=== PATIENT | female | born 1955 | race Caucasian/White ===

== ENCOUNTER 2019-12-01 12:58 | Emergency (ER) | payer MEDICAID ==
[~2019-12-01] VITALS: Ht 162.6 cm; Wt 160.0 kg
[2019-12-01] MEDS ORDERED: IV NORMAL SALINE 1,000ML 1,000 ML IV SCH (13:34)
[2019-12-01] MEDS ORDERED: FAMOTIDINE 20 MG/2 ML VIAL ONE (13:42)
[2019-12-01] MEDS ORDERED: FAMOTIDINE 20 MG/2 ML VIAL IVP ONE (13:45)
[2019-12-01] MEDS ORDERED: ONDANSETRON PF 4 MG/2 ML VIAL. IVP ONE (13:45)
--- NOTE | 2019-12-01 13:49 | PHYS DOC ---
Past History Past Medical History: No Pertinent History Past Medical History Back pain, obesity Past Surgical History: Other Additional Past Surgical Histo: LEFT ROTATOR CUFF Alcohol Use: None General Adult EDM: Chief Complaint: ABDOMINAL PAIN HPI: HPI: Patient is a 64 year old female who presents for evaluation of upper abdominal pain. Symptoms been progressing for the past 2 to 3 weeks. She states that when she eats that she starts having increased pain. As a result she is had decreased recent food intake. Symptoms are getting worse. She also is complain ing of acute on chronic low back pain. She did have an episode of nausea and vomiting as well as dry heaves. There is no reported diarrhea, black bloody or tarry stools. She saw her family physician about 3 days ago and was diagnosed with a UTI. She is currently taking Bactrim. Patient is otherwise benign- appearing. Review of Systems: Review of Systems: Constitutional: Denies fever or chills Eyes: Denies change in visual acuity HENT: Denies nasal congestion or sore throat Respiratory: Denies cough or shortness of breath Cardiovascular: Denies chest pain or edema GI: upper abdominal pain with episode of nausea and vomiting, no bloody stools or diarrhea : Denies dysuria Musculoskeletal: low back pain no joint pain Integument: Denies rash Neurologic: Denies headache, focal weakness or sensory changes Endocrine: Denies polyuria or polydipsia Lymphatic: Denies swollen glands Psychiatric: Denies depression or anxiety Heart Score: Risk Factors: Risk Factors: DM, Current or recent (<one month) smoker, HTN, HLP, family history of CAD, obesity. Risk Scores: Score 0 - 3: 2.5% MACE over next 6 weeks - Discharge Home Score 4 - 6: 20.3% MACE over next 6 weeks - Admit for Clinical Observation Score 7 - 10: 72.7% MACE over next 6 weeks - Early Invasive Strategies Current Medications: Current Meds: Current Medications Medications (Trade) Dose Ordered Sig/Chang Start Time Stop Time Status Last Admin Dose Admin Famotidine (Pepcid Vial) 20 mg STK-MED ONCE 12/01/19 13:42 12/01/19 13:42 DC Ondansetron HCl (Zofran) 8 mg 1X ONCE 12/01/19 13:45 12/01/19 13:46 DC 12/01/19 13:45 8 MG Sodium Chloride 1,000 ml @ 100 mls/hr Q10H 12/01/19 13:34 12/01/19 23:33 12/01/19 13:44 100 MLS/HR Allergies: Allergies: Allergies Coded Allergies Type Severity Reaction Last Updated Verified amoxicillin Allergy Unknown Rash 12/01/19 Yes Physical Exam: PE: Constitutional: Well developed, well nourished, mild acute distress, non-toxic appearance. [] HENT: Normocephalic, atraumatic, bilateral external ears normal, oropharynx moist, no oral exudates, nose normal. [] Eyes: PERRL, EOMI, conjunctiva normal, no discharge. [] Neck: Normal range of motion, no tenderness, supple. [] Cardiovascular:Heart rate regular rhythm, no murmur [] Lungs & Thorax: Bilateral breath sounds clear to auscultation [] Abdomen: Bowel sounds diminished, no distention, soft, tenderness minimal epigastric area, no masses. [] Skin: Warm, dry, no erythema, no rash. [] Back: No tenderness. [] Extremities: No tenderness, no cyanosis, no clubbing, ROM intact, no edema. [] Neurologic: Alert and oriented X 3, normal motor function, normal sensory function, no focal deficits noted. [] Psychologic: Affect normal, judgement normal, mood normal. [] Current Patient Data: Vital Signs: Vital Signs Date Time Temp Pulse Resp B/P (MAP) Pulse Ox O2 Delivery O2 Flow Rate FiO2 12/01/19 13:28 98.3 96 18 142/100 (114) 92 Room Air EKG: EKG: EKG showed normal sinus rhythm, rate 85, leftward axis, inverted T wave lead III, not STEMI, read at 1345 [] Radiology/Procedures: Radiology/Procedures: [address] [address] IMAGING REPORT Signed PATIENT: RAYMOND BASILIO ACCOUNT: [id number] : 1955 LOCATION: ER AGE: 64 SEX: F EXAM STATUS: REG ER ORD. PHYSICIAN: RAUL VINSON DO REASON: upper abd pain PROCEDURE: ACUTE ABDOMEN SERIES Examination: ACUTE ABDOMEN SERIES History: Reason: upper abd pain / Spl. Instructions: / History: Comparison/Correlation: None Findings: Frontal view of the chest was obtained. Supine and upright views the abdomen were provided. Heart size is normal. No pneumothorax. Pulmonary vasculature normal limits. Bony structures are unremarkable. The lateral right upper lung field, there is a 0.6 cm well-defined nodule. No pleural effusion. No infiltrate. Supine and upright views of the abdomen were obtained. Bowel gas pattern is normal. Bony structures are unremarkable. No suspicious abdominal calcifications. Right upper quadrant clips which densities which may represent surgical clips noted. Impression: No focal infiltrate. Lateral right upper lung nodule which may represent a calcified granuloma. Correlate with prior exams if available. Interval follow-up in 6 months alternatively be performed if there are no prior exams. No bowel obstruction. Electronically signed by: Vin Umaña MD (12/01/2019 2:27 PM) [id number] DICTATED AND SIGNED BY: VIN UMAÑA MD DATE: 12/01/19 1427 CC: GRAHAM LEPE MD; RAUL VINSON DO ~ [] Course & Med Decision Making: Course & Med Decision Making Pertinent Labs and Imaging studies reviewed. (See chart for details) [] Dragon Disclaimer: Dragon Disclaimer: This electronic medical record was generated, in whole or in part, using a voice recognition dictation system. 1544 stable, feeling somewhat better at this time. Patient states has been pas sing some blood vaginally for several days. She is already being treated for urinary tract infection is currently on Bactrim. That infection appears to be controlled. Rest of blood work is unremarkable. Differential diagnosis include pancreatitis versus cardiac versus obstruction versus pneumonia versus other. Patient does not need to be admitted to the hospital. She likely has gastritis and may need outpatient endoscopy should her symptoms worsen or persist. Patient has no reported black, bloody or tarry stools. Prescription for Pepcid and Zofran given. Patient is been taking Pepto-Bismol with minimal improvement of symptoms at home Departure Departure: Impression: Primary Impression: Upper abdominal pain Additional Impression: Gastritis Qualified Codes: K29.00 - Acute gastritis without bleeding Disposition: HOME/RESIDENCE PRIOR TO ADM Condition: STABLE Referrals: GRAHAM LEPE MD (PCP) Patient Instructions: Abdominal Pain (Nonspecific), Gastritis, Adult Additional Instructions: [place] diet, no spicy foods, take Pepcid and Zofran as directed, call and see your doctor right in follow-up. Should your symptoms persist or worsen you may need endoscopy. Scripts Famotidine (PEPCID) 20 Mg Tablet 1 TAB PO BID for gastritis, #20 TAB 0 Refills Prov: RAUL VINSON DO 12/01/19 Ondansetron Hcl (ZOFRAN) 4 Mg Tablet 1 TAB PO PRN Q6HRS PRN for NAUSEA, #10 TAB Prov: RAUL VINSON DO 12/01/19 Justification of Admission: Justification of Admission: Justification of Admission Dx: N/A RAUL VINSON DO Dec 01, 2019 13:49
--- NOTE | 2019-12-01 14:06 | EKG ---
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
[2019-12-01 14:08] LABS: BASO # 0.1 x10^3/uL (0.0-0.2); BASO % 1 % (0-3); EOS # 0.3 x10^3/uL (0.0-0.7); EOS % 4 % (0-3); HEMATOCRIT 48.8 % (36.0-47.0); HEMOGLOBIN 16.3 g/dL (12.0-15.5); LYMPH # 2.6 x10^3/uL (1.0-4.8); LYMPH % 28 % (24-48); MEAN CORPUSCULAR HEMOGLOBIN 31 pg (25-35); MEAN CORPUSCULAR HGB CONC 33 g/dL (31-37); MEAN CORPUSCULAR VOLUME 92 fL (79-100); MONO # 0.8 x10^3/uL (0.0-1.1); MONO % 9 % (0-9); NEUT # 5.6 x10^3uL (1.8-7.7); NEUT % 59 % (31-73); PLATELET COUNT 294 x10^3/uL (140-400); RED BLOOD COUNT 5.31 x10^6/uL (3.50-5.40); RED CELL DISTRIBUTION WIDTH 14.2 % (11.5-14.5); WHITE BLOOD COUNT 9.5 x10^3/uL (4.0-11.0)
[2019-12-01 14:26] LABS: CALCIUM 8.5 mg/dL (8.5-10.1); CREATININE 1.3 mg/dL (0.6-1.0); GFR 41.5; POTASSIUM 4.7 mmol/L (3.5-5.1)
--- NOTE | 2019-12-01 14:30 | RAD ---
Examination: ACUTE ABDOMEN SERIES History: Reason: upper abd pain / Spl. Instructions: / History: Comparison/Correlation: None Findings: Frontal view of the chest was obtained. Supine and upright views the abdomen were provided. Heart size is normal. No pneumothorax. Pulmonary vasculature normal limits. Bony structures are unremarkable. The lateral right upper lung field, there is a 0.6 cm well-defined nodule. No pleural effusion. No infiltrate. Supine and upright views of the abdomen were obtained. Bowel gas pattern is normal. Bony structures are unremarkable. No suspicious abdominal calcifications. Right upper quadrant clips which densities which may represent surgical clips noted. Impression: No focal infiltrate. Lateral right upper lung nodule which may represent a calcified granuloma. Correlate with prior exams if available. Interval follow-up in 6 months alternatively be performed if there are no prior exams. No bowel obstruction. Electronically signed by: Vin Boles MD (12/01/2019 2:27 PM) [id number]
[2019-12-01 14:31] LABS: ALBUMIN 2.8 g/dL (3.4-5.0); ALBUMIN/GLOBULIN RATIO 0.6 (1.0-1.7); TOTAL BILIRUBIN 0.3 mg/dL (0.2-1.0); TOTAL PROTEIN 7.4 g/dL (6.4-8.2)
[2019-12-01] MEDS ORDERED: DICYCLOMINE 20 MG/2 ML VIAL. IM ONE (14:45)
[2019-12-01 15:38] LABS: BACTERIA,URINE 0 /HPF (0-FEW); BILIRUBIN,URINE NEG (NEG); CLARITY,URINE HAZY; COLOR,URINE AMBER; GLUCOSE,URINE 100 mg/dL (NEG); NITRITE,URINE POS (NEG); RBC,URINE 20-40 /HPF (0-2)
[2019-12-01 15:39] LABS: HYALINE CASTS, URINE OCC /HPF; SQUAMOUS EPITHELIAL CELL,UR MANY /LPF
[2019-12-01] MEDS ORDERED: FAMO-63 PO (15:48)
[2019-12-01] MEDS ORDERED: ONDA4TAB7 PO (15:48)
[2019-12-01 15:57] VITALS: BP 119/82
== END 2019-12-01 15:58 | disposition home or self-care (01) ==
LOC: ER 12:58
DX: K29.00 Acute gastritis without bleeding (principal); R10.10 Upper abdominal pain, unspecified; R11.2 Nausea with vomiting, unspecified; M54.5 Low back pain; G89.29 Other chronic pain; E66.9 Obesity, unspecified; Z68.44 Body mass index [BMI] 60.0-69.9, adult; Z88.1 Allergy status to other antibiotic agents
CPT/HCPCS: 36415; 74022; 80053; 81001; 83690; 84484; 85025; 93005; 96361; 96372; 96374; 96375; 99285; J0500; J2405; J3490; J7030

== ENCOUNTER 2019-12-24 17:11 | Inpatient (IN) | payer MEDICAID ==
[~2019-12-24] VITALS: Ht 162.6 cm; Wt 155.3 kg
[~2019-12-24 17:11] MED LIST: FAMO-63 PO; ONDA4TAB7 PO
--- NOTE | 2019-12-24 17:40 | PHYS DOC ---
Past History Additional Past Medical Histor: Obesity, chronic back pain (ROSA KRUEGER DO) Past Surgical History: Other Additional Past Surgical Histo: LEFT ROTATOR CUFF (ROSA KRUEGER DO) Alcohol Use: None (ROSA KRUEGER DO) Adult General Chief Complaint Chief Complaint: OTHER COMPLAINTS HPI HPI Patient is a 64-year-old female who presents via EMS for generalized weakness. Patient lives alone with her cat and states "I cannot do anything for myself". Patient cites eating [employer] in late October and ever since then, has been weak. Patient had a fall this morning, ground-level, onto the ground when she was trying to squat to use the commode. Denies hitting her head, neck, no LOC. Patient was on ground and due to habitus, was unable to get up. Patient's sister was alerted about fall and states that patient declined going via EMS for evaluation. Patient was ultimately found by sister still on the ground 9 hours from fall at 5 AM until she was found at 2 PM by daughter. Ultimately, daughter was concerned given patient's state that she called EMS for transport to [facility] for evaluation. On arrival to our ER, patient reports chronic back pain and inability to care for self. Denies any other concerning symptoms such as fever, recent URI-like illness, chest pain, shortness of breath, abdominal pa in, changes with bladder or bowel function, edema, recent concerning ingestions or exposures. Patient is obese and has chronic lower back pain due to this for which she is treated with narcotics in an outpatient setting, otherwise she denies any other significant medical comorbidities. Her PCP is Dr. Lepe who has done well providing care for her in the outpatient setting. She is pending CT abdomen pelvis with contrast and pelvic ultrasound that is scheduled for December 30. Patient is wanting relocation to alf or other type of assisted living facility, she is also wanting a wheelchair at this time (ROSA KRUEGER DO) Review of Systems Review of Systems Fourteen body systems of review of systems have been reviewed. See HPI for pertinent positives and negative responses, other yoon all other systems are negative, non-pertinent or non-contributory (ROSA KRUEGER DO) Allergies Allergies Allergies Coded Allergies Type Severity Reaction Last Updated Verified amoxicillin Allergy Unknown Rash 12/01/19 Yes (ROSA KRUEGER DO) Physical Exam Physical Exam Constitutional: Obese, well nourished, no acute distress, non-toxic appearance, unkept appearing. [] HENT: Normocephalic, atraumatic, bilateral external ears normal, oropharynx moist, no oral exudates, nose normal. [] Eyes: PERRLA, EOMI, conjunctiva normal, no discharge. [] Neck: Normal range of motion, no tenderness, supple, no stridor. [] Cardiovascular:Heart rate tachycardic, regular rhythm, no murmur rubs or gallops [] Lungs & Thorax: Bilateral breath sounds clear to auscultation [] Abdomen: Bowel sounds normal, soft, no tenderness, no masses, no pulsatile masses. No suprapubic tenderness to palpation [] Skin: Warm, dry, no erythema, no rash. [] Back: Bilateral paraspinal muscle tenderness in thoracic and lumbar areas, no palpable step-offs or midline tenderness of C/T/L spines, no CVA tenderness. [] Extremities: No tenderness, no cyanosis, no clubbing, ROM intact, no edema. [] Neurologic: Alert and oriented X 3, normal motor function, normal sensory function, no focal deficits noted. [] Psychologic: Affect normal, judgement normal, mood normal. [] (ROSA KRUEGER DO) EKG EKG EKG ordered and interpreted by myself at 1750 hrs. as sinus tachycardia at 109 bpm, unremarkable intervals, no axis deviation, findings consistent with Q waves in leads III and aVF concerning for potentially old inferior infarct, no ischemic findings, no STEMI (ROSA KRUEGER DO) Radiology/Procedures Radiology/Procedures [] (ROSA KRUEGER DO) Radiology/Procedures [address] [address] IMAGING REPORT Signed PATIENT: RAYMOND BASILIO ACCOUNT: [id number] : 1955 LOCATION: ER AGE: 64 SEX: F EXAM STATUS: REG ER ORD. PHYSICIAN: ROSA KRUEGER DO REASON: FALL, PAIN PROCEDURE: CHEST AP ONLY Single view chest and single view pelvis dated 12/24/2019. Comparison made to 12/01/2019 CLINICAL INDICATION: Pain after fall. FINDINGS chest: Single upright view of the chest shows normal heart and mediastinal contours. There is a nodular density at the left measures up to 2 cm, similar to prior study given differences in technique.. Mildly prominent perihilar linear markings some linear scar or atelectasis at the right base. No pleural effusion or consolidation. No pneumothorax. IMPRESSION chest: 1. No acute radiographic abnormality. 2. Nodular density at the left mid zone is indeterminate but probably not significantly changed from the prior exam. Neoplasm is not excluded. If indicated, CT to better evaluate. Findings pelvis: 3 AP images submitted. Bony alignment is anatomic. No displaced fracture. Pelvic ring is intact. Mild hypertrophic change of the bilateral hip joint with spondylotic change of the lower lumbar spine. IMPRESSION pelvis: No evidence of displaced fracture. If there is persistent clinical concern for occult fracture or insufficiency fracture, MRI could better evaluate Electronically signed by: Torsten Alicea MD (12/24/2019 6:31 PM) [facility] DICTATED AND SIGNED BY: TORSTEN ALICEA MD DATE: 12/24/19 183 CC: GRAHAM LEPE MD; ROSA KRUEGER DO ~ [address] [address] IMAGING REPORT Signed PATIENT: RAYMOND BASILIO ACCOUNT: [id number] : 1955 LOCATION: ER AGE: 64 SEX: F EXAM STATUS: REG ER ORD. PHYSICIAN: ROSA KRUEGER DO REASON: FALL - MOSTLY LEFT HIP PAIN PROCEDURE: PELVIS Single view chest and single view pelvis dated 12/24/2019. Comparison made to 12/01/2019 CLINICAL INDICATION: Pain after fall. FINDINGS chest: Single upright view of the chest shows normal heart and mediastinal contours. There is a nodular density at the left measures up to 2 cm, similar to prior study given differences in technique.. Mildly prominent perihilar linear markings some linear scar or atelectasis at the right base. No pleural effusion or consolidation. No pneumothorax. IMPRESSION chest: 1. No acute radiographic abnormality. 2. Nodular density at the left mid zone is indeterminate but probably not significantly changed from the prior exam. Neoplasm is not excluded. If indicated, CT to better evaluate. Findings pelvis: 3 AP images submitted. Bony alignment is anatomic. No displaced fracture. Pelvic ring is intact. Mild hypertrophic change of the bilateral hip joint with spondylotic change of the lower lumbar spine. IMPRESSION pelvis: No evidence of displaced fracture. If there is persistent clinical concern for occult fracture or insufficiency fracture, MRI could better evaluate Electronically signed by: Torsten Alicea MD (12/24/2019 6:31 PM) [facility] DICTATED AND SIGNED BY: TORSTEN ALICEA MD DATE: 12/24/191830 CC: GRAHAM LEPE MD; ROSA KRUEGER DO ~ (HENNA LANE MD) Course & Med Decision Making Course & Med Decision Making Patient seen and examined by myself on immediate ED arrival via ems Vital signs grossly unremarkable, sinus tachycardia, saturating greater than 90% on room air and soft blood pressure Comprehensive history and physical exam obtained, called daughter who provided additional history as patient was grossly asymptomatic with an unremarkable exam and did not provide much meaningful information Pertinent laboratory and imaging findings ordered and reviewed Patient's PCP, Dr. Lepe, was contacted and case discussed. He was agreeable that if anything medically indicative required admission that he would accept the admission; otherwise, he was amenable to discharge home via EMS transport and would see patient within 7 days to assist with patient care needs such as wheelchair and organizing patient to relocate to a home health facility versus other At this time of patient care, my shift has ended. Detailed report given to overnight physician. Discussed HPI, physical exam findings, and fact that laboratory and imaging studies ordered have not pended yet Please defer to their documentation for further medical management care (ROSA KRUEGER DO) Course & Med Decision Making Discussed presentation test and treatment plan with Dr. Lepe p Admit to Tele for further eval. and tx. Impression. 1. History of fall unable to get up more than 6 hours 2. Weakness 3. Morbid obesity 4. Obesity hypoventilation syndrome 5. Leukocytosis 12.1 6. Respiratory failure hypoxia 7. Elevated AST ALT and alk phos 8. Elevated CK 270 9. Malnutrition albumin 1.9 10. [id number] 11. Hyperkalemia critical 6.0 12. Elevated BUN and creatinine 44/2.6 13. Viral syndrome 14. Hyponatremia 126 Discussed presentation, testing and tx. plan with Dr. Lepe.. Admit for further eval. Plan on Social Service consult. (HENNA LANE MD) Dragon Disclaimer Dragon Disclaimer This electronic medical record was generated, in whole or in part, using a voice recognition dictation system. (ROSA KRUEGER DO) Departure Departure: Disposition: HOME/RESIDENCE PRIOR TO ADM Condition: STABLE Referrals: GRAHAM LEPE MD (PCP) Justification of Admission: Justification of Admission: Justification of Admission Dx: N/A (ROSA KRUEGER DO) Justification of Admission Dx: Yes Respiratory Failure: Severe Vent Deficit (HENNA LANE MD) Dragon Disclaimer This chart was dictated in whole or in part using Voice Recognition software in a busy, high-work load, and often noisy Emergency Department environment. It may contain unintended and wholly unrecognized errors or omissions. (HENNA LANE MD) ROSA KRUEGER DO Dec 24, 2019 17:[address] MD Dec 24, 2019 19:37
[2019-12-24 17:49] LABS: BASO # 0.1 x10^3/uL (0.0-0.2); BASO % 1 % (0-3); EOS % 0 % (0-3); HEMATOCRIT 47.3 % (36.0-47.0); HEMOGLOBIN 15.7 g/dL (12.0-15.5); LYMPH # 1.5 x10^3/uL (1.0-4.8); LYMPH % 12 % (24-48); MEAN CORPUSCULAR HEMOGLOBIN 30 pg (25-35); MEAN CORPUSCULAR HGB CONC 33 g/dL (31-37); MEAN CORPUSCULAR VOLUME 90 fL (79-100); MONO # 0.9 x10^3/uL (0.0-1.1); MONO % 8 % (0-9); NEUT # 9.6 x10^3uL (1.8-7.7); NEUT % 79 % (31-73); PLATELET COUNT 117 x10^3/uL (140-400); RED BLOOD COUNT 5.23 x10^6/uL (3.50-5.40); RED CELL DISTRIBUTION WIDTH 14.6 % (11.5-14.5); WHITE BLOOD COUNT 12.1 x10^3/uL (4.0-11.0)
--- NOTE | 2019-12-24 17:51 | EKG ---
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
[2019-12-24] MEDS ORDERED: IV NORMAL SALINE 1,000ML 1,000 ML IV ONE ×2 (18:00→18:50)
[2019-12-24 18:11] LABS: CALCIUM 10.5 mg/dL (8.5-10.1); CREATININE 2.6 mg/dL (0.6-1.0); GFR 18.7
[2019-12-24 18:16] LABS: ALBUMIN 1.9 g/dL (3.4-5.0); ALBUMIN/GLOBULIN RATIO 0.4 (1.0-1.7); TOTAL PROTEIN 7.2 g/dL (6.4-8.2)
--- NOTE | 2019-12-24 18:34 | RAD ---
Single view chest and single view pelvis dated 12/24/2019. Comparison made to 12/01/2019 CLINICAL INDICATION: Pain after fall. FINDINGS chest: Single upright view of the chest shows normal heart and mediastinal contours. There is a nodular density at the left measures up to 2 cm, similar to prior study given differences in technique.. Mildly prominent perihilar linear markings some linear scar or atelectasis at the right base. No pleural effusion or consolidation. No pneumothorax. IMPRESSION chest: 1. No acute radiographic abnormality. 2. Nodular density at the left mid zone is indeterminate but probably not significantly changed from the prior exam. Neoplasm is not excluded. If indicated, CT to better evaluate. Findings pelvis: 3 AP images submitted. Bony alignment is anatomic. No displaced fracture. Pelvic ring is intact. Mild hypertrophic change of the bilateral hip joint with spondylotic change of the lower lumbar spine. IMPRESSION pelvis: No evidence of displaced fracture. If there is persistent clinical concern for occult fracture or insufficiency fracture, MRI could better evaluate Electronically signed by: Torsten Navarrete MD (12/24/2019 6:31 PM) ODELL
[2019-12-24] MEDS ORDERED: SODIUM BICARB ADULT 8.4% 50 MEQ/50 ML DISP.SYRIN. IV ONE (18:50)
[2019-12-24 19:04] LABS: % ATYL 6 % (0-0); % BANDS 4 % (0-9); % LYMPHS 7 % (24-48); % MONOS 12 % (0-10); % MYELOS 1 % (0-0); % PROS 1 % (0-0); % SEGS 69 % (35-66); NUCLEATED RBC 1
[2019-12-24 19:05] LABS: PLT ESTIMATE DECREASED (ADEQUATE)
[2019-12-24 19:19] LABS: BGAS PH 7.37 (7.35-7.45)
[2019-12-24] MEDS ORDERED: IV NORMAL SALINE 50ML 50 ML ONE (19:37)
[2019-12-24] MEDS ORDERED: cefTRIAXone SODIUM 1 GM VIAL ONE (19:37)
[2019-12-24] MEDS ORDERED: ONDANSETRON PF 4 MG/2 ML VIAL. IVP PRN (19:45)
[2019-12-24] MEDS ORDERED: FUROSEMIDE 40 MG/4 ML VIAL IVP ONE (19:45)
[2019-12-24] MEDS ORDERED: ACETAMINOPHEN 325 MG TABLET PO PRN (19:45)
[2019-12-24 20:02] LABS: BACTERIA,URINE 0 /HPF (0-FEW); BILIRUBIN,URINE NEG (NEG); CLARITY,URINE HAZY; COLOR,URINE YELLOW; GLUCOSE,URINE 100 mg/dL (NEG); NITRITE,URINE POS (NEG); RBC,URINE OCC /HPF (0-2); SQUAMOUS EPITHELIAL CELL,UR FEW /LPF; WBC,URINE OCC /HPF (0-4)
[2019-12-24 20:03] LABS: AMORPHOUS SEDIMENT,UR PRESENT /HPF
[2019-12-24] MEDS: IPRATRPIUM/ALBUTEROL 0.5/2.5MG 3 ML NEBU. NEB SCH (20:10)
[2019-12-24] MEDS ORDERED: CALCIUM CHLORIDE 1,000 MG/10 ML DISP.SYRIN IV ONE (20:10)
[2019-12-24] MEDS ORDERED: SODIUM POLYSTYRENE SULFONATE 15 GM/60 ML ORAL.SUSP. PO SCH (21:00)
--- NOTE | 2019-12-24 21:00 | NUR ---
Pt admitted from ER to [facility] room 125 via [facility] accompanied [facility] and nursing staff. Pt moved from gurney to bed x 4 assist, pt c/o increased weakness and inability to do ADLs. Pt had a fall at home and laid on the floor for 10+ hours because she was unable to get herself up off the floor. Admission assessment completed. VSS, pt with O2 sat >92% on 2L NC. Telemetry applied, S.Tach noted on monitor. Health history and home medications reviewed with pt. Nasal Covid swab completed and pt advised of isolation precautions. POC reviewed with pt, understanding verbalized. Blood cultures drawn x 2 sets and a Lactic acid. Pt with call light in hand. Dr Beverly called for orders.
[2019-12-24] MEDS: SODIUM POLYSTYRENE SULFONATE 15 GM/60 ML ORAL.SUSP. PO SCH (21:16)
[2019-12-24 21:18] VITALS: BP 102/67
[2019-12-24] MEDS ORDERED: ACETAMINOPHEN/CODEINE 300/30MG TABLET PO PRN (23:45)
[2019-12-25] MEDS: FAMOTIDINE 20 MG TABLET PO SCH ×2 (00:13→14:17)
[2019-12-25] MEDS ORDERED: ACET12.53 PO (00:53)
[2019-12-25] MEDS: IPRATRPIUM/ALBUTEROL 0.5/2.5MG 3 ML NEBU. NEB SCH ×2 (05:07→12:00)
[2019-12-25 05:36] VITALS: BP 90/69
[2019-12-25] MEDS ORDERED: FUROSEMIDE 40 MG/4 ML VIAL IVP ONE ×2 (06:00)
--- NOTE | 2019-12-25 06:10 | NUR ---
Pt with x6 incont BM's r/t Kayexalate - brown, loose and gritty. Pt turned well with incont care, Calmoseptine applied r/t frequent stools. Pt called often for need of PRN "Tylenol #3" to help with chronic back pain. Pt stated that she takes it just about every 6 or so hours at home. Pt slept good after administration of pain medication after midnight. Pt slightly drowsy this AM but able to hold an appropriate conversation during lab draw and incont. care. O2 sat maintaining >92% on 2L NC. Awaiting lab results for further treatment.
[2019-12-25 06:14] LABS: BASO % 0 % (0-3); EOS % 0 % (0-3); HEMATOCRIT 45.4 % (36.0-47.0); HEMOGLOBIN 14.9 g/dL (12.0-15.5); LYMPH # 1.4 x10^3/uL (1.0-4.8); LYMPH % 12 % (24-48); MEAN CORPUSCULAR HEMOGLOBIN 30 pg (25-35); MEAN CORPUSCULAR HGB CONC 33 g/dL (31-37); MEAN CORPUSCULAR VOLUME 91 fL (79-100); MONO # 0.9 x10^3/uL (0.0-1.1); MONO % 8 % (0-9); NEUT # 8.9 x10^3uL (1.8-7.7); NEUT % 79 % (31-73); PLATELET COUNT 99 x10^3/uL (140-400); RED BLOOD COUNT 4.99 x10^6/uL (3.50-5.40); RED CELL DISTRIBUTION WIDTH 14.8 % (11.5-14.5); WHITE BLOOD COUNT 11.3 x10^3/uL (4.0-11.0)
[2019-12-25 06:24] LABS: ALBUMIN 1.8 g/dL (3.4-5.0); ALBUMIN/GLOBULIN RATIO 0.4 (1.0-1.7); CALCIUM 10.3 mg/dL (8.5-10.1); GFR 15.8; MAGNESIUM 2.1 mg/dL (1.8-2.4); TOTAL BILIRUBIN 0.8 mg/dL (0.2-1.0); TOTAL PROTEIN 6.6 g/dL (6.4-8.2)
[2019-12-25] MEDS: SODIUM POLYSTYRENE SULFONATE 15 GM/60 ML ORAL.SUSP. PO SCH ×2 (09:00→13:00)
[2019-12-25] MEDS ORDERED: CEFEPIME HCL 1 GM in IV NORMAL SALINE 50ML 50 ML IV SCH (09:30)
[2019-12-25] MEDS ORDERED: IV NORMAL SALINE 1,000ML 1,000 ML IV SCH (09:30)
[2019-12-25] MEDS ORDERED: ENOXAPARIN ** NOTE DOSE ** SYRINGE SQ SCH (09:30)
--- NOTE | 2019-12-25 10:40 | NUR ---
Patient transferred to ICU, report given to SAMMIE Nichole
[2019-12-25 12:22] LABS: ALBUMIN 1.8 g/dL (3.4-5.0); TOTAL BILIRUBIN 0.9 mg/dL (0.2-1.0); TOTAL PROTEIN 6.5 g/dL (6.4-8.2)
[2019-12-25 12:24] LABS: DIRECT BILIRUBIN 0.4 mg/dL (0.0-0.2)
[2019-12-25 12:30] VITALS: BP 95/57
--- NOTE | 2019-12-25 12:49 | RAD ---
CT CHEST WO CONTRAST Indication: Metastases Technique: Noncontrast CT imaging was performed of the chest, multiplanar reconstruction images submitted. One or more of the following individualized dose reduction techniques were utilized for this examination: 1. Automated exposure control 2. Adjustment of the mA and/or kV according to patient size 3. Use of iterative reconstruction technique. Comparison: None Findings: There are multiple noncalcified lung nodules bilaterally. Largest noncalcified mass of the left upper lobe measures about 1.9 cm CC by about 3 cm AP by 1.9 cm transverse, about but of the anterior pleural surface. There is small dependent left pleural effusion, appears somewhat hyperdense although otherwise difficult to characterize due to beam attenuation by soft tissues. There is no pericardial fluid. Main pulmonary artery measures about 4 cm. Thoracic aortic caliber is within normal limits. There is mild coronary calcification. There is likely enlarged ashely mass to the right of the distal aorta near the hiatus estimated about 2.4 cm short axis dimension. There is retroperitoneal lymphadenopathy, not fully included. There may be heterogeneity of the liver, underlying hepatic lesion not excludable by this exam. There is cholelithiasis including near neck of gallbladder. IMPRESSION: 1. There are multiple bilateral pulmonary nodules, evidence of metastatic disease as per history. There is likely enlarged ashely mass to the right of the aorta near the level of hiatus. There is retroperitoneal lymphadenopathy. 2. There is small dependent left pleural effusion, may be hyperdense as could be seen with component of proteinaceous fluid or hemorrhage although limited characterization due to beam attenuation by soft tissues. 3. Poorly characterized, underlying hepatic lesion is not excluded by this exam. 4. There is cholelithiasis including near neck of gallbladder. 5. Main pulmonary is somewhat dilated as could be seen with pulmonary hypertension. Electronically signed by: Davey Sierra MD (12/25/2019 12:46 PM) [id number]
[2019-12-25] MEDS ORDERED: NOREPINEPHRINE BITARTRATE 8 MG in IV DEXTROSE 5% 250 ML IV PRN (13:00)
--- NOTE | 2019-12-25 18:24 | HP ---
ADMIT DATE: 12/24/2019 HISTORY OF PRESENT ILLNESS: A 64-year-old female came in through the Emergency Room, apparently increased weakness, apparently had fallen in her bathroom and required an EMS to take her out to the Emergency Room where she complained of generalized weakness in the leg. The patient had been lying on the floor, concerned about the patient and the patient was seen. The patient was having some tests to be done as an outpatient including CT abdomen and pelvis. Recent MRI showed extreme lymphadenopathy, probable cancer, elevated CA 125 __. The patient is awaiting to go to a halfway, but in any case, the patient was admitted presently for her situation of generalized weakness in the leg as well as she also had a low sodium of 126, potassium of 6 and markedly elevated liver enzymes. PAST MEDICAL HISTORY: Severe back pain with compression fracture, morbid obesity, nausea, heartburn, urinary tract infection, carpal tunnel, orthopedic surgery, back pain, anxiety, smoking, inability to do ADLs and progressive weakness. ALLERGIES: PENICILLIN. FAMILY HISTORY: Positive for diabetes. SOCIAL HISTORY: No smoking, alcohol or drug use. The patient is full code. REVIEW OF SYSTEMS: Generalized weakness, lethargy, change in mental status, other elements of denies any problem with bowels or bladder at the present time. No chest pain. PHYSICAL EXAMINATION: GENERAL: The patient otherwise on exam is a heavyset white female, markedly somewhat obtunded. VITAL SIGNS: Blood pressure 85/55, respiratory rate 20, pulse 108, and afebrile. HEENT: The patient's head was atraumatic, normocephalic. Eyes: PERRLA without jaundice. The patient is able to answer some questions, but very lethargically. LUNGS: The patient's lungs are diminished, but clear. CARDIOVASCULAR: Regular sinus rhythm, S1, S2. ABDOMEN: Soft, nontender, protuberant. EXTREMITIES: No clubbing, cyanosis. Trace edema noted. Pulses noted distally. NEUROLOGIC: Barely alert, very lethargic. LABORATORY DATA: The patient has noted earlier sodium and potassium 126 and 6. The patient's white count is 11.3, 14.9 and 45. The patient is otherwise D-dimer of 12.5. Liver enzymes elevated. Creatinine elevated. Specific gravity is 1.030. IMPRESSION: Therefore, sepsis, change in mental status, hyponatremia, hyperkalemia, hypotension, anuria, probable ovarian cancer, compression fracture of the back, metastatic disease, retroperitoneal lymphadenopathy, probable pulmonary hypertension, morbid obesity, type 2 diabetes, and chronic kidney disease stage 3. The patient had to be placed on a norepinephrine, Levophed drip. She was on cefepime and levofloxacin for this. Otherwise, the patient was stabilized in the ICU. COVID-19 pending and she will be monitored carefully in the ICU, later on she was transferred to [place] for further evaluation and treatment. GRAHAM LEPE MD DR: BIBI/jose JOB#: [id number] / [id number]
[2019-12-25] MEDS ORDERED: LACTOBACILLUS RHAMNOSUS GG 1 CAPSULE. PO SCH (21:00)
[2019-12-26 00:07] LABS: HEMOGLOBIN A1C 5.9 % (4.8-5.6)
== END 2019-12-25 14:50 | disposition short-term general hospital (02) | DRG 871 ==
LOC: ER 17:11 → 1 SOUTH 19:00 → ER 20:32 → ICU 12-25 10:24
PROVIDERS: ADMIT Family Medicine; ATTEND Family Medicine
DX: A41.9 Sepsis, unspecified organism (principal); J96.91 Respiratory failure, unspecified with hypoxia; C56.9 Malignant neoplasm of unspecified ovary; J98.11 Atelectasis; Z68.43 Body mass index [BMI] 50.0-59.9, adult; E87.1 Hypo-osmolality and hyponatremia; E66.2 Morbid (severe) obesity with alveolar hypoventilation; E46 Unspecified protein-calorie malnutrition; W18.30XA Fall on same level, unspecified, initial encounter; R59.0 Localized enlarged lymph nodes; R34 Anuria and oliguria; G89.29 Other chronic pain; M54.5 Low back pain; E87.5 Hyperkalemia; I27.20 Pulmonary hypertension, unspecified; D69.6 Thrombocytopenia, unspecified; R97.1 Elevated cancer antigen 125 [CA 125]; F41.9 Anxiety disorder, unspecified; E11.22 Type 2 diabetes mellitus with diabetic chronic kidney disease; Z20.828 Contact with and (suspected) exposure to other viral communicable diseases; N18.3 Chronic kidney disease, stage 3 (moderate); Z88.1 Allergy status to other antibiotic agents; Y99.8 Other external cause status; Y93.89 Activity, other specified; Y92.89 Other specified places as the place of occurrence of the external cause; Z83.3 Family history of diabetes mellitus; Z87.440 Personal history of urinary (tract) infections
CPT/HCPCS: 36415; 36600; 51701; 71045; 71250; 72170; 80053; 80076; 81001; 82550; 82803; 83036; 83605; 83735; 83874; 83880; 84443; 84484; 85007; 85025; 85379; 86705; 86709; 86803; 87040; 87086; 87340; 93005; 96361; 96365; 96375; J0692; J0696; J1650; J1940; J1956; J2405; 99285-25; J7030; U0003-CS